=== PATIENT | female | born 1995 | race African-American/Black ===

== ENCOUNTER 2021-06-15 12:53 | Emergency (ER) | payer MEDICAID, OTHER ==
[~2021-06-15] VITALS: Ht 167.6 cm; Wt 167.8 kg
[2021-06-15 12:53] VITALS: BP 135/72
== END 2021-06-15 17:12 | disposition left against medical advice (07) ==
LOC: ER 12:53
DX: J02.9 Acute pharyngitis, unspecified (principal); M79.10 Myalgia, unspecified site; R50.9 Fever, unspecified; Z53.21 Procedure and treatment not carried out due to patient leaving prior to being seen by health care provider